=== PATIENT | female | born 1990 | race Asian ===

== ENCOUNTER 2021-08-18 22:58 | Emergency (ER) | payer OTHER ==
[~2021-08-18] VITALS: Ht 162.6 cm; Wt 77.0 kg
[2021-08-19 01:20] VITALS: BP 131/89
== END 2021-08-19 01:42 | disposition home or self-care (01) ==
LOC: ER 22:58
DX: S06.0X0A Concussion without loss of consciousness, initial encounter (principal); X58.XXXA Exposure to other specified factors, initial encounter; Y93.89 Activity, other specified; Y92.89 Other specified places as the place of occurrence of the external cause; Y99.8 Other external cause status
CPT/HCPCS: 99281